=== PATIENT | male | born 1960 | race Caucasian/White ===

== ENCOUNTER 2023-10-12 22:34 | Emergency (ER) | payer BC ==
[2023-10-12] MEDS: Lidocaine 1% 10 ML MDV INJECT ONE (22:58)
[2023-10-12] MEDS: Lidocaine 1% 10 ML MDV ONE (23:12)
[2023-10-12] MEDS: Cephalexin 500 MG Cap PO ONE (23:14)
== END 2023-10-12 23:34 | disposition home or self-care (01) ==
LOC: JD.ED 22:34
DX: S61.214A Laceration without foreign body of right ring finger without damage to nail, initial encounter (principal); Z79.899 Other long term (current) drug therapy; Z88.8 Allergy status to other drugs, medicaments and biological substances; W26.8XXA Contact with other sharp object(s), not elsewhere classified, initial encounter
CPT/HCPCS: 12002; 73140; 99283; A9270; 99282; J3490